=== PATIENT | male | born 1970 | race Two or more races ===

== ENCOUNTER 2018-10-19 00:41 | Emergency (ER) | payer SELFPAY ==
[2018-10-19 00:57] VITALS: BP 142/88; PULSE 76; RESP 16; TEMP 97.6; O2SAT 97
[2018-10-19 00:58] VITALS: BMI 31.7
--- NOTE | 2018-10-19 02:28 | ED PDOC ---
Arrival/HPI - General Chief Complaint: Medical Clearance Time Seen by Provider: 10/19/18 02:09 Historian: Patient - History of Present Illness Narrative History of Present Illness (Text): 10/19/18 02:32 A 47 year old male presents to the emergency department complaining of anxiety for several months, getting worse. Patient reports he has had difficulty sleeping and has tried aromatherapy, meditation, and melatonin. Patient denies any SI/HI, or any other complaints at this time. Denies any substance abuse. Past Medical History - Provider Review Nursing Documentation Reviewed: Yes - Cardiac Hx Cardiac Disorders: Yes - Gastrointestinal Hx Gastrointestinal Disorders: Yes Hx Gastroesophageal Reflux: Yes - Psychiatric Hx Psychophysiologic Disorder: Yes Hx Anxiety: Yes Hx Substance Use: No Family/Social History - Physician Review Nursing Documentation Reviewed: Yes Family/Social History: No Known Family HX Smoking Status: Never Smoked Hx Alcohol Use: Yes Frequency of alcohol use: Socially Hx Substance Use: No Allergies/Home Meds Allergies/Adverse Reactions: Allergies ibuprofen [From Advil] Allergy (Verified 10/19/18 01:06) URTICARIA Home Medications: Home Meds Medication Instructions Recorded Confirmed Alprazolam [Xanax] 0.25 mg PO PRN PRN 10/19/18 10/19/18 Atorvastatin [Lipitor] 40 mg PO DAILY 10/19/18 10/19/18 Pantoprazole Sodium [Protonix] 40 mg PO DAILY 10/19/18 10/19/18 Review of Systems - Physician Review All systems were reviewed & negative as marked: Yes - Review of Systems Constitutional: Other (difficulty sleeping) Psychiatric: Anxiety. absent: Suicidal Ideation (and no homicidal ideation) Physical Exam Vital Signs Reviewed: Yes Vital Signs Temp Pulse Resp BP Pulse Ox 10/19/18 00:56 97.6 F 76 16 142/88 97 Temperature: Afebrile Blood Pressure: Normal Pulse: Regular Respiratory Rate: Normal Appearance: Positive for: Well-Appearing, Non-Toxic, Comfortable Pain Distress: None Mental Status: Positive for: Alert and Oriented X 3 - Systems Exam Head: Present: Atraumatic, Normocephalic Pupils: Present: PERRL Extroacular Muscles: Present: EOMI Conjunctiva: Present: Normal Mouth: Present: Moist Mucous Membranes Neck: Present: Normal Range of Motion Respiratory/Chest: Present: Clear to Auscultation, Good Air Exchange. No: Respiratory Distress, Accessory Muscle Use Cardiovascular: Present: Regular Rate and Rhythm, Normal S1, S2. No: Murmurs Abdomen: No: Tenderness, Distention, Peritoneal Signs Back: Present: Normal Inspection Upper Extremity: Present: Normal Inspection. No: Cyanosis, Edema Lower Extremity: Present: Normal Inspection. No: Edema Neurological: Present: GCS=15, CN II-XII Intact, Speech Normal Skin: Present: Warm, Dry, Normal Color. No: Rashes Psychiatric: Present: Alert, Oriented x 3, Normal Insight, Normal Concentration Medical Decision Making ED Course and Treatment: 10/19/18 02:32 Impression: 47 year old male with anxiety and difficulty sleeping. Plan: -- Reassess and disposition Progress Notes: Explained that the ED does not routinely prescribe sleep aids. Advised trying benadryl and following up with PMD. Patient then eloped from the ED. - Scribe Statement The provider has reviewed the documentation as recorded by the Rodo Savage Provider Scribe Attestation: All medical record entries made by the Scribe were at my direction and personally dictated by me. I have reviewed the chart and agree that the record accurately reflects my personal performance of the history, physical exam, medical decision making, and the department course for this patient. I have also personally directed, reviewed, and agree with the discharge instructions and disposition. Disposition/Present on Arrival - Present on Arrival Any Indicators Present on Arrival: No History of DVT/PE: No History of Uncontrolled Diabetes: No Urinary Catheter: No History of Decub. Ulcer: No History Surgical Site Infection Following: None - Disposition Have Diagnosis and Disposition been Completed?: Yes Diagnosis: Insomnia Disposition: ELOPEMENT - ER ONLY Disposition Time: 02:20 Condition: STABLE Discharge Instructions (ExitCare): Insomnia (DC) Forms: [employer] (Bulgarian)
== END 2018-10-19 06:56 | disposition left against medical advice (07) ==
LOC: ED 00:41
DX: G47.00 Insomnia, unspecified (principal)